=== PATIENT | male | born 1995 | race Caucasian/White ===

== ENCOUNTER 2021-10-19 00:30 | Emergency (ER) | payer MEDICAID ==
[2021-10-19] MEDS ORDERED: Ondansetron 4 MG/2 ML SDV IVPUSH ONE (00:31)
[2021-10-19 01:00] LABS: BLOOD UREA NITROGEN,BUN 12 mg/dL (7.0-18.0); CARBON DIOXIDE,CO2 22.1 mmol/L (21.0-32.0); CHLORIDE,CL 105 mmol/L (98-107); GLUCOSE RANDOM 211 mg/dL (74-106); LIPASE 398 U/L (73-393); POTASSIUM,K 2.8 mmol/L (3.5-5.1); SODIUM,NA 142 mmol/L (136-148)
[2021-10-19] MEDS ORDERED: Potassium Chloride Riders 40 MEQ in Premix Bag 1 BAG IV ONE (01:07)
[2021-10-19] MEDS ORDERED: Lactated Ringers 1,000 ML IV SCH (01:15)
== END 2021-10-19 05:20 | disposition home or self-care (01) ==
LOC: MW.ED 00:30
DX: F10.129 Alcohol abuse with intoxication, unspecified (principal); E87.6 Hypokalemia; Y90.6 Blood alcohol level of 120-199 mg/100 ml
CPT/HCPCS: 36415; 80053; 80307; 83690; 85025; 96365; 96366; 96375; 99284; J2405; J3480; J7120; 99285